=== PATIENT | female | born 1955 | race Caucasian/White ===

== ENCOUNTER 2020-05-11 09:28 | Emergency (ER) | payer OTHER ==
[2020-05-11] MEDS ORDERED: Sodium Chloride 0.9% 10 ML Syringe FLUSH PRN (10:07)
--- NOTE | 2020-05-11 10:10 | EDM.PDOC ---
ED HPI GENERAL MEDICAL PROBLEM - General Chief Complaint: Abdominal Pain Stated Complaint: LEFT SIDE ABD PAIN Time Seen by Provider: 05/11/20 10:04 Source of Information: Reports: Patient, Family, Provider, RN Notes Reviewed History Limitations: Reports: No Limitations - History of Present Illness INITIAL COMMENTS - FREE TEXT/NARRATIVE: 64-year-old female presents emergency department today with complaint of abdominal pain, she states abdominal pain started about 48 hours ago has progressively gotten worse is predominantly in the left lower quadrant has had waves of nausea no fevers no shortness of breath no chest pain no problems with bowel movements does have a history of abdominal surgery with a total abdominal hysterectomy Left Lower Abdomen Pain Score (Numeric/FACES): 3 - Related Data Allergies Allergy/AdvReac Type Severity Reaction Status Date / Time atracurium [From Tracrium] Allergy Cannot Verified 05/11/20 09:51 Remember azithromycin [From Zithromax] Allergy Swelling Verified 05/11/20 09:51 codeine Allergy Anxiety Verified 05/11/20 09:51 methylprednisolone Allergy Rash Verified 05/11/20 09:51 [From Medrol] morphine Allergy Itching Verified 05/11/20 09:51 Sulfa (Sulfonamide Allergy Rash Verified 05/11/20 09:51 Antibiotics) Home Meds: Home Meds lisinopriL [Prinivil] 5 mg PO BEDTIME 09/02/15 [History] *Tumeric 0 tab PO DAILY 05/11/20 [History] Amoxicillin/Potassium Clav [Augmentin 875-125 Tablet] 1 each PO DAILY #20 tablet 05/11/20 [Rx] Cholecalciferol (Vitamin D3) [Vitamin D3] 3 drop PO DAILY 05/11/20 [History] Past Medical History Cardiovascular History: Reports: Hypertension [employer] History: Reports: Musculoskeletal History: Reports: Fracture Dermatologic History: Reports: Other (See Below) Other Dermatologic History: rash on foot - Past Surgical History Female Surgical History: Reports: Hysterectomy Social & Family History - Tobacco Use Smoking Status *Q: Never Smoker - Caffeine Use Caffeine Use: Reports: Coffee - Recreational Drug Use Recreational Drug Use: No ED ROS GENERAL - Review of Systems Review Of Systems: See Below Constitutional: Denies: Fever HEENT: Reports: No Symptoms Respiratory: Reports: No Symptoms Cardiovascular: Reports: No Symptoms GI/Abdominal: Reports: Abdominal Pain, Flatus, Nausea. Denies: Constipation, Diarrhea : Reports: No Symptoms Musculoskeletal: Reports: No Symptoms ED EXAM, GI/ABD - Physical Exam Exam: See Below Exam Limited By: No Limitations General Appearance: Alert, WD/WN, No Apparent Distress Neck: Normal Inspection, Supple, Non-Tender, Full Range of Motion Respiratory/Chest: No Respiratory Distress, Lungs Clear, Normal Breath Sounds, No Accessory Muscle Use, Chest Non-Tender Cardiovascular: Regular Rate, Rhythm, No Murmur GI/Abdominal Exam: Soft, No Distention, No Abnormal Bruit, Guarding, Tender (Left lower quadrant). No: Rigid Course - Vital Signs Last Recorded V/S: Last Vital Signs Temp 97.8 F 05/11/20 09:49 Pulse 85 05/11/20 10:23 Resp 16 05/11/20 10:23 BP 138/81 05/11/20 10:23 Pulse Ox 96 05/11/20 10:23 - Orders/Labs/Meds Orders: Active Orders 24 hr Category Date Time Status Peripheral IV Care [RC] . DIRECTED Care 05/11/20 10:07 Active Iopamidol [Isovue-300 (61%)] Med 05/11/20 10:30 Active 100 ml IV . DIRECTED Lactated Ringers [Ringers, Lactated] 1,000 ml Med 05/11/20 10:15 Active IV ASDIRECTED Sodium Chloride 0.9% [Normal Saline] 80 ml Med 05/11/20 10:30 Active IV ASDIRECTED Sodium Chloride 0.9% [Saline Flush] Med 05/11/20 10:07 Active 10 ml FLUSH ASDIRECTED PRN Peripheral IV Insertion Adult [OM.PC] Urgent Oth 05/11/20 10:07 Ordered Medication Orders Lactated Ringer's (Ringers, Lactated) 1,000 mls @ 999 mls/hr IV ASDIRECTED JOSEFINA Last Admin: 05/11/20 11:15 Dose: 999 mls/hr Documented by: CRYS Sodium Chloride (Normal Saline) 80 mls @ 3.5 mls/sec IV ASDIRECTED JOSEFINA Stop: 05/11/20 12:30 Last Admin: 05/11/20 11:03 Dose: 3.5 mls/sec Documented by: Admin: 05/11/20 11:02 Dose: 3.5 mls/sec Documented by: KENYON Iopamidol (Isovue-300 (61%)) 100 ml IV . DIRECTED JOSEFINA Stop: 05/11/20 12:30 Last Admin: 05/11/20 11:02 Dose: 100 ml Documented by: KENYON Sodium Chloride (Saline Flush) 10 ml FLUSH ASDIRECTED PRN PRN Reason: Keep Vein Open Last Admin: 05/11/20 11:02 Dose: 10 ml Documented by: KENYON Labs: Laboratory Tests 05/11/20 05/11/20 05/11/20 Range/Units 10:07 10:20 10:20 WBC 11.3 H (4.5-11.0) K/uL RBC 4.75 (3.30-5.50) M/uL Hgb 15.0 (12.0-15.0) g/dL Hct 45.0 (36.0-48.0) % MCV 95 (80-98) fL MCH 32 H (27-31) pg MCHC 33 (32-36) % Plt Count 205 (150-400) K/uL Neut % (Auto) 77 H (36-66) % Lymph % (Auto) 12 L (24-44) % [place] % (Auto) 11 H (2-6) % Eos % (Auto) 0 L (2-4) % Baso % (Auto) 0 (0-1) % Sodium 141 (140-148) mmol/L Potassium 3.6 (3.6-5.2) mmol/L Chloride 102 (100-108) mmol/L Carbon Dioxide 30 (21-32) mmol/L Anion Gap 9.3 (5.0-14.0) mmol/L BUN 8 (7-18) mg/dL Creatinine 0.7 (0.6-1.0) mg/dL Est Cr Clr Drug Dosing 73.06 mL/min Estimated GFR (MDRD) > 60 (>60) Glucose 112 H (74-106) mg/dL Lactic Acid (0.4-2.0) mmol/L Calcium 8.5 (8.5-10.1) mg/dL Total Bilirubin 1.7 H D (0.2-1.0) mg/dL AST 10 L (15-37) U/L ALT 20 (12-78) U/L Alkaline Phosphatase 73 (46-116) U/L Total Protein 7.4 (6.4-8.2) g/dL Albumin 3.4 (3.4-5.0) g/dL Globulin 4.0 H (2.3-3.5) g/dL Albumin/Globulin Ratio 0.9 L (1.2-2.2) Lipase 77 (73-393) U/L Urine Color Yellow (YELLOW) Urine Appearance Clear (CLEAR) Urine pH 6.5 (5.0-8.0) Ur Specific Bryan 1.020 (1.008-1.030) Urine Protein Negative (NEGATIVE) mg/dL Urine Glucose (UA) Negative (NEGATIVE) mg/dL Urine Ketones Negative (NEGATIVE) mg/dL Urine Occult Blood Trace-lysed H (NEGATIVE) Urine Nitrite Negative (NEGATIVE) Urine Bilirubin Negative (NEGATIVE) Urine Urobilinogen 1.0 (0.2-1.0) EU/dL Ur Leukocyte Esterase Negative (NEGATIVE) Urine RBC 0-5 (0-5) Urine WBC 0-5 (0-5) Ur Epithelial Cells Not seen Amorphous Sediment Not seen Urine Bacteria Not seen Urine Mucus Not seen 05/11/20 Range/Units 10:20 WBC (4.5-11.0) K/uL RBC (3.30-5.50) M/uL Hgb (12.0-15.0) g/dL Hct (36.0-48.0) % MCV (80-98) fL MCH (27-31) pg MCHC (32-36) % Plt Count (150-400) K/uL Neut % (Auto) (36-66) % Lymph % (Auto) (24-44) % [place] % (Auto) (2-6) % Eos % (Auto) (2-4) % Baso % (Auto) (0-1) % Sodium (140-148) mmol/L Potassium (3.6-5.2) mmol/L Chloride (100-108) mmol/L Carbon Dioxide (21-32) mmol/L Anion Gap (5.0-14.0) mmol/L BUN (7-18) mg/dL Creatinine (0.6-1.0) mg/dL Est Cr Clr Drug Dosing mL/min Estimated GFR (MDRD) (>60) Glucose (74-106) mg/dL Lactic Acid 0.7 (0.4-2.0) mmol/L Calcium (8.5-10.1) mg/dL Total Bilirubin (0.2-1.0) mg/dL AST (15-37) U/L ALT (12-78) U/L Alkaline Phosphatase (46-116) U/L Total Protein (6.4-8.2) g/dL Albumin (3.4-5.0) g/dL Globulin (2.3-3.5) g/dL Albumin/Globulin Ratio (1.2-2.2) Lipase (73-393) U/L Urine Color (YELLOW) Urine Appearance (CLEAR) Urine pH (5.0-8.0) Ur Specific [place] (1.008-1.030) Urine Protein (NEGATIVE) mg/dL Urine Glucose (UA) (NEGATIVE) mg/dL Urine Ketones (NEGATIVE) mg/dL Urine Occult Blood (NEGATIVE) Urine Nitrite (NEGATIVE) Urine Bilirubin (NEGATIVE) Urine Urobilinogen (0.2-1.0) EU/dL Ur Leukocyte Esterase (NEGATIVE) Urine RBC (0-5) Urine WBC (0-5) Ur Epithelial Cells Amorphous Sediment Urine Bacteria Urine Mucus Meds: Medications Generic Name Dose Route Start Last Admin Trade Name Freq PRN Reason Stop Dose Admin Lactated Ringer's 1,000 mls @ 999 mls/hr 05/11/20 10:15 05/11/20 11:15 Ringers, Lactated IV 999 mls/hr ASDIRECTED JOSEFINA Administration Sodium Chloride 80 mls @ 3.5 mls/sec 05/11/20 10:30 05/11/20 11:03 Normal Saline IV 05/11/20 12:30 3.5 mls/sec ASDIRECTED JOSEFINA Administration Iopamidol 100 ml 05/11/20 10:30 05/11/20 11:02 Isovue-300 (61%) IV 05/11/20 12:30 100 ml . DIRECTED JOSEFINA Administration Sodium Chloride 10 ml 05/11/20 10:07 05/11/20 11:02 Saline Flush FLUSH 10 ml ASDIRECTED PRN Administration Keep Vein Open Discontinued Medications Generic Name Dose Route Start Last Admin Trade Name Freq PRN Reason Stop Dose Admin Sodium Chloride 10 ml 05/11/20 10:24 05/11/20 11:16 Saline Flush FLUSH 05/11/20 10:25 10 ml ONETIME ONE Administration Departure - Departure Time of Disposition: 11:59 Disposition: Home, Self-Care 01 Condition: Fair Clinical Impression: Diverticulitis large intestine Qualifiers: Diverticulitis bleeding: without bleeding Diverticulitis complication: without perforation or abscess Qualified Code(s): K57.32 - Diverticulitis of large intestine without perforation or abscess without bleeding - Discharge Information Prescriptions: Amoxicillin/Potassium Clav [Augmentin 875-125 Tablet] 1 each PO DAILY #20 tablet Instructions: Diverticulitis Referrals: Sammi Ferreira PA [Primary Care Provider] - Forms: ED Department Discharge Additional Instructions: Take full course of antibiotics, please followup with your primary care provider in 5-7 days if not better, please call return to the emergency department with worsening of symptoms. Sepsis Event Note (ED) - Evaluation Sepsis Screening Result: No Definite Risk - Focused Exam Vital Signs: Vital Signs Temp Pulse Resp BP Pulse Ox 05/11/20 10:23 85 16 138/81 96 05/11/20 09:49 97.8 F 89 15 146/81 H 98 05/11/20 09:43 97.8 F 89 15 146/81 H 98 - My Orders Last 24 Hours: My Active Orders 05/11/20 10:07 Peripheral IV Care [RC] . DIRECTED Sodium Chloride 0.9% [Saline Flush] 10 ml FLUSH ASDIRECTED PRN Peripheral IV Insertion Adult [OM.PC] Urgent 05/11/20 10:15 Lactated Ringers [Ringers, Lactated] 1,000 ml IV ASDIRECTED 05/11/20 10:30 Iopamidol [Isovue-300 (61%)] 100 ml IV . DIRECTED Sodium Chloride 0.9% [Normal Saline] 80 ml IV ASDIRECTED - Assessment/Plan Last 24 Hours: My Active Orders 05/11/20 10:07 Peripheral IV Care [RC] . DIRECTED Sodium Chloride 0.9% [Saline Flush] 10 ml FLUSH ASDIRECTED PRN Peripheral IV Insertion Adult [OM.PC] Urgent 05/11/20 10:15 Lactated Ringers [Ringers, Lactated] 1,000 ml IV ASDIRECTED 05/11/20 10:30 Iopamidol [Isovue-300 (61%)] 100 ml IV . DIRECTED Sodium Chloride 0.9% [Normal Saline] 80 ml IV ASDIRECTED Plan: Assessment Acuity = acute Site and laterality = diverticulitis proximal third sigmoid colon Etiology = unknown Manifestations = none Location of injury = Home Lab values = CBC unremarkable CMP reveals a bilirubin elevated 1.7 consistent with hyperbilirubinemia, lactic acid within normal limits CT scan describes the diverticulitis above Plan She will use Tylenol and Motrin as needed for pain control antibiotics Augmentin 875 p.o. twice daily x10 days follow-up primary care in 5 to 7 days if no improvement This note was dictated using [employer] voice recognition software please call with any questions on syntax or grammar.
[2020-05-11] MEDS ORDERED: Lactated Ringers 1,000 ML IV SCH (10:15)
[2020-05-11] MEDS ORDERED: Sodium Chloride 0.9% 10 ML Syringe FLUSH ONE (10:24)
[2020-05-11] MEDS ORDERED: Iopamidol 612 MG/ML 100 ML Bottle IV SCH (10:30)
[2020-05-11] MEDS: Sodium Chloride 0.9% 80 ML IV SCH ×2 (11:02→11:03)
--- NOTE | 2020-05-11 11:24 | CT ---
Abdomen Pelvis w Cont CLINICAL HISTORY: Left lower quadrant pain COMPARISON: 2014. TECHNIQUE: Transverse scans were obtained from the base of the lungs to the pubic symphysis following oral contrast and IV infusion of contrast.Auto dosage reduction and iterative reconstructiontechniques employed. FINDINGS: There is moderate thickening of the proximal third of the sigmoid colon. There is diverticulosis. There is inflammatory change in the pericolic fat. No abscess or free air is identified. The lung bases are clear. The liver shows no mass or biliary dilatation.. The gallbladder has a normal appearance. The spleen has a normal size and shape. There is a tiny splenule. The pancreas shows no mass or inflammatory change. The adrenal glands appear normal bilaterally . The kidneys show no mass, stones or hydronephrosis. The ureters have a normal course and caliber. Bladder has a normal contour. Uterus is absent. The aorta has a normal contour. There is no suspicious retroperitoneal adenopathy. IMPRESSION: Diverticulosis with diverticulitis involving the proximal third of the sigmoid colon
[2020-05-11 12:23] VITALS: BP 154/76; PULSE 85
== END 2020-05-11 12:42 | disposition home or self-care (01) ==
LOC: JP.ED 09:28
DX: K57.32 Diverticulitis of large intestine without perforation or abscess without bleeding (principal); I10 Essential (primary) hypertension; Z88.1 Allergy status to other antibiotic agents; Z88.5 Allergy status to narcotic agent; Z88.2 Allergy status to sulfonamides; Z88.8 Allergy status to other drugs, medicaments and biological substances
CPT/HCPCS: 36415; 74177; 80053; 81001; 83605; 83690; 85025; 99284; J7050; J7120; Q9967

== ENCOUNTER 2022-01-14 14:58 | Emergency (ER) | payer MEDICARE, OTHER ==
[2022-01-14] MEDS ORDERED: Lisinopril 10 MG Tab PO ONE (16:27)
[2022-01-14 16:49] VITALS: BP 178/90; PULSE 65
== END 2022-01-14 17:00 | disposition home or self-care (01) ==
LOC: JP.ED 14:58
DX: I10 Essential (primary) hypertension (principal); R07.89 Other chest pain; R11.0 Nausea; Z88.1 Allergy status to other antibiotic agents; Z88.2 Allergy status to sulfonamides; Z88.5 Allergy status to narcotic agent; Z88.8 Allergy status to other drugs, medicaments and biological substances; Z79.899 Other long term (current) drug therapy; Z87.891 Personal history of nicotine dependence
CPT/HCPCS: 36415; 80053; 84443; 84484; 85025; 93005; 93010; 99283; 99285-25; A9270-GY

== ENCOUNTER 2022-08-23 20:25 | Emergency (ER) | payer MEDICARE ==
[2022-08-23 21:05] LABS: ESTIMATED GFR 81 mL/min (>60)
[2022-08-23 22:30] VITALS: BP 134/72; PULSE 73
[2022-08-23] MEDS ORDERED: Nitroglycerin/D5W 25 MG/250 ML BOTTLE IV SCH (22:30)
== END 2022-08-23 23:50 | disposition home or self-care (01) ==
LOC: JP.ED 20:25
DX: M25.512 Pain in left shoulder (principal); I10 Essential (primary) hypertension; Z88.1 Allergy status to other antibiotic agents; Z88.5 Allergy status to narcotic agent; Z88.2 Allergy status to sulfonamides; Z79.899 Other long term (current) drug therapy; Z86.16 Personal history of COVID-19; Z90.710 Acquired absence of both cervix and uterus
CPT/HCPCS: 36415; 71045; 80053; 84484; 85025; 93005; 96365; 99285; J3490